=== PATIENT | female | born 1985 | race Caucasian/White ===

== ENCOUNTER 2022-02-17 14:09 | Observation (INO) | payer MEDICAID, SELFPAY ==
[2022-02-17 14:10] VITALS: BP 136/89; PULSE 77; RESP 16; TEMP 37.1; O2SAT 100; BMI 35.6
[2022-02-17 14:36] LABS: Absolute Lymphocyte Count 2.77 X10^3/uL (0.83-4.51); Absolute Neutrophil Count 3.7 X10^3/uL (2.0-7.7); Basophil# 0.03 X10^3/uL; Basophil% 0.4 % (0-1); Eosinophil# 0.16 X10^3/uL; Eosinophils% 2.1 % (0-5); Hematocrit 36.9 % (37-47); Hemoglobin 11.8 g/dL (12.0-15.0); Lymphocyte # 2.77 X10^3/ul (0.83-4.51); Lymphocyte % 36.8 % (19-41); Mean Corpuscular Hgb 28.1 pg (27.0-32.0); Mean Corpuscular Volume 87.9 fL (81-99); Mean Platelet Vol. 9.1 fl (6.2-12.0); Monocyte# 0.82 X10^3/uL; Monocyte% 10.9 % (0-10); NRBC Flagged by Analyzer 0 % (0-5); Neutrophil # 3.74 X10^3/uL (2.7-7.7); Neutrophil % 49.7 % (47-70); Platelet Count 265 K/mm3 (150-450); RBC Distribution Width CV 13.4 % (11.6-14.6); RBC Distribution Width SD 43.3 fl (35.1-43.9); White Blood Count 7.5 K/mm3 (4.4-11.0)
--- NOTE | 2022-02-17 14:46 | ED.RN ---
PT MAKES THIS RN AWARE THAT HER IS ALSO HERE FOR DETOX. THIS RN MAKES PATIENT AWARE THAT THEY WILL NOT BE ABLE TO BE IN CONTACT WITH EACH OTHER OR VISIT DURING THE DURATION OF HOSPITAL STAY. PT VERBALIZES UNDERSTANDING.
[2022-02-17 14:50] LABS: ALB/GLOB Ratio 0.8 RATIO (0.9-2.4); AST(SGOT) 42 U/L (15-37); Alanine Aminotransfer ALT/SGPT 66 U/L (13-56); Albumin, Serum 3.5 g/dL (3.2-5.0); Alkaline Phosphatase 93 U/L (45-117); Anion Gap 4 (5-15); BUN 12 mg/dL (7-18); BUN/Creat Ratio 13.2 RATIO (10-20); Calcium,Total 9.2 mg/dL (8.5-10.1); Chloride 105 mmol/L (98-107); Creatinine, Serum 0.91 mg/dL (0.55-1.02); EST Glomerular Filtration Rate 74 mL/min (>60); Est Glom Filt Rate - Afr Amer 89 mL/min (>60); Globulin 4.2 g/dL (2.2-4.2); Glucose 95 mg/dL (74-106); Potassium 3.9 mmol/L (3.5-5.1); Protein, Total 7.7 g/dL (6.4-8.2); Sodium Level 136 mmol/L (136-145)
--- NOTE | 2022-02-17 15:07 | EX.ED.SAOD ---
HPI History of Present Illness Chief Complaint: Substance Abuse Informant: patient Narrative Narrative: Patient presenting with her significant other both for opiate detox. She has been using for years, the last time she went through detox was over a year ago. She has been snorting heroin/fentanyl, and other than smoking cigarettes she does no other drugs or substances including alcohol. She last used this morning and has no withdrawal symptoms right now but when she does not use she does get withdrawal symptoms. No other illness recently and no other injury or suicidal ideation. [facility] Medical History Anxiety Depressed Drug abuse Drug abuse and dependence Restless leg syndrome Allergy/AdvReac Type Severity Reaction Status Date / Time Sulfa (Sulfonamide Allergy Hives Verified 02/17/22 14:13 Antibiotics) Social History Smoking Status: Current every day smoker tobacco type: cigarettes ROS ROS ED Constitutional Constitutional ED: Denies chills or fever(s) Eyes Eyes: Denies change in vision or diplopia ENT ENT ED: Denies rhinorrhea or sore throat Cardiovascular Cardiovascular: Denies chest pain or palpitations Respiratory/Chest Respiratory/Chest: Denies cough or dyspnea Gastrointestinal Gastrointestinal: Denies abdominal pain, diarrhea, nausea or vomiting Genitourinary Genitourinary ED: Denies dysuria or hematuria Musculoskeletal Musculoskeletal: Denies back pain or neck pain Integumentary Denies abscess or rash Neurologic Neurologic: Denies headache(s), paresthesias or weakness Psychiatric Psychiatric: Denies anxiety or suicidal thoughts EXAM Physical Exam Const Vital Signs: 02/17/22 14:10 Temperature 98.8 F Temperature Source Temporal Pulse Rate 77 Respiratory Rate 16 Blood Pressure 136/89 H Blood Pressure Mean 104 Pulse Ox 100 Oxygen Delivery Method Room Air Positive well nourished and well developed General Appearance ED: well developed and NAD HEENT Reports moist mucous membranes normocephalic and atraumatic Eyes PERRL and EOMs intact bilaterally Neck full ROM and supple Resp normal respiratory effort and clear to auscultation bilaterally Cardio regular rate, regular rhythm and no murmurs GI non-tender and non-distended Auscultation: normoactive bowel sounds Palpation: soft Back/Spine no CVA tenderness General Back: other FROM Extremity normal to inspection General Extremety ED: Negative for edema, pulses abnormal or tenderness General Extremity: Negative for edema or pulses abnormal Neuro oriented x3, CN's II-XII intact bilaterally and no sensory deficits noted Sensorium / Orientation: awake and alert Motor Exam: strength 5/5 throughout Skin no rashes or lesions noted and no wounds MDM MDM MDM Narrative Medical decision making narrative: Patient clinically and hemodynamically stable, discussed with hospitalist for admission for detox. Lab Data Attestation: I reviewed the patient's lab results. Labs: Laboratory Results - last 24 hr 02/17/22 02/17/22 02/17/22 14:28 14:28 14:38 WBC 7.5 RBC 4.20 Hgb 11.8 L Hct 36.9 L MCV 87.9 MCH 28.1 MCHC 32.0 RDW Std Deviation 43.3 RDW Coeff of Massimo 13.4 Plt Count 265 MPV 9.1 Immature Gran % (Auto) 0.100 Neut % (Auto) 49.7 Lymph % (Auto) 36.8 [place] % (Auto) 10.9 H Eos % (Auto) 2.1 Baso % (Auto) 0.4 Absolute Neuts (auto) 3.7 Absolute Lymphs (auto) 2.77 Nucleated RBC % 0 Sodium 136 Potassium 3.9 Chloride 105 Carbon Dioxide 27.0 Anion Gap 4 L BUN 12 Creatinine 0.91 Estim Creat Clear Calc 66.30 Est GFR (MDRD) Af Amer 89 Est GFR (MDRD) Non-Af 74 BUN/Creatinine Ratio 13.2 Glucose 95 Calcium 9.2 Total Bilirubin 0.30 AST 42 H ALT 66 H Alkaline Phosphatase 93 Total Protein 7.7 Albumin 3.5 Globulin 4.2 Albumin/Globulin Ratio 0.8 L Ur Drug Screen Comment Discharge Plan Triage Chief Complaint: Substance Abuse ED Provider: Mitch Tabor Dx/Rx/DC Orders Clinical Impression: Opiate dependence Primary Care Provider: Marquita Arshad Referrals: Marquita Arshad DO [Primary Care Provider] - Disposition Disposition: Acute Care Hospital [facility]
[2022-02-17 15:08] LABS: Amphetamine Urine VISTA POSITIVE (<1000 ng/mL); Barbiturate Urine VISTA NEGATIVE (< 200 ng/mL); Benzodiazepine Urine VISTA NEGATIVE (< 200 ng/mL); Cocaine Urine VISTA POSITIVE (< 300 ng/mL); Ecstacy Urine VISTA POSITIVE (< 500 ng/mL); Methadone Urine VISTA NEGATIVE (< 300 ng/mL); PCP Urine VISTA NEGATIVE (< 25 ng/mL); THC Urine VISTA POSITIVE (< 50 ng/mL); Vista UDS pH Range 5
[2022-02-17 15:10] VITALS: BP 133/84; PULSE 72; RESP 16; TEMP 37; O2SAT 98
--- NOTE | 2022-02-17 15:12 | HP.PCM.HOS_ITS ---
HPI - General General Date of Admission: 02/17/22 HPI Narrative RAFAELA BANKS, is a 36 F who presents to the hospital requesting opiate detox. She has been using for several years and last time she went through detox was over a year ago. She denies any injection opiates but she does snort heroin and fentanyl. She does smoke but she denies any alcohol use. Her last use was this morning and does not endorse any withdrawal symptoms at this time. [facility] Medical History Anxiety Depressed Drug abuse Drug abuse and dependence Restless leg syndrome Allergy/AdvReac Type Severity Reaction Status Date / Time Sulfa (Sulfonamide Allergy Hives Verified 02/17/22 14:13 Antibiotics) Social History Smoking Status: Current every day smoker tobacco type: cigarettes ROS Constitutional Constitutional: Denies chills, fatigue, fever(s) or malaise Eyes Eyes: Denies blurry vision ENT HEENT: Denies headache(s) or nasal discharge Cardiovascular Cardiovascular: Denies chest pain, dyspnea on exertion or syncope Respiratory/Chest Respiratory/Chest: Denies cough, shortness of breath at rest or shortness of breath with exertion Gastrointestinal Gastrointestinal: Denies constipation, diarrhea, nausea or vomiting Genitourinary Genitourinary: Denies dysuria Neurologic Neurologic: Denies focal weakness, numbness or tremor(s) Psychiatric Psychiatric: Denies anxiety or depression Vital Signs Vital Signs Vital Signs: 02/17/22 14:10 Temperature 98.8 F Temperature Source Temporal Pulse Rate 77 Respiratory Rate 16 Blood Pressure 136/89 H Blood Pressure Mean 104 Pulse Ox 100 Oxygen Delivery Method Room Air Weight Weight: 195 lb Body Mass Index (BMI) 35.6 Physical Exam Narrative General: Alert, Oriented x3, Cooperative, No apparent distress, little sleepy from her use this morning HEENT: Atraumatic, PERRLA, EOMI, Normocephalic Oral: Moist Mucosa Neck: Supple, No JVD Lungs: Clear to auscultation, Normal air movement, No rhonchi, No wheeze, No rales Cardiovascular: Regular rate, Regular Rhythm, Normal S1, Normal S2, No murmurs Abdomen: Soft, Non Tender, Non-Distended, No Hepato-splenomegaly Extremities: No edema, Capillary Refill Less than 3 Seconds Skin: No rashes, No breakdown Musculoskeletal: No Tenderness to Palpation of Joints or Extremities Neurological: Cranial nerves II-XII grossly intact, Motor Exam 5/5 strength throughout, Sensory exam intact to light touch and pain Psych/Mental Status: Normal Affect, Appropriate Results Lab / Micro Data Result Diagrams: 02/17/22 14:28 02/17/22 14:28 Labs: Laboratory Results - last 24 hr 02/17/22 14:28: WBC 7.5, RBC 4.20, Hgb 11.8 L, Hct 36.9 L, MCV 87.9, MCH 28.1, MCHC 32.0, RDW Std Deviation 43.3, RDW Coeff of Massimo 13.4, Plt Count 265, MPV 9.1, Immature Gran % (Auto) 0.100, Neut % (Auto) 49.7, Lymph % (Auto) 36.8, [place] % (Auto) 10.9 H, Eos % (Auto) 2.1, Baso % (Auto) 0.4, Absolute Neuts (auto) 3.7, Absolute Lymphs (auto) 2.77, Nucleated RBC % 0 02/17/22 14:28: Sodium 136, Potassium 3.9, Chloride 105, Carbon Dioxide 27.0, Anion Gap 4 L, BUN 12, Creatinine 0.91, Estim Creat Clear Calc 66.30, Est GFR (MDRD) Af Amer 89, Est GFR (MDRD) Non-Af 74, BUN/Creatinine Ratio 13.2, Glucose 95, Calcium 9.2, Total Bilirubin 0.30, AST 42 H, ALT 66 H, Alkaline Phosphatase 93, Total Protein 7.7, Albumin 3.5, Globulin 4.2, Albumin/Globulin Ratio 0.8 L 02/17/22 14:38: Urine Opiates Screen NEGATIVE, Urine Methadone Screen NEGATIVE, Ur Barbiturates Screen NEGATIVE, Ur Phencyclidine Scrn NEGATIVE, Ur Amphetamines Screen POSITIVE H, MDMA (Ecstasy) Screen POSITIVE H, U Benzodiazepines Scrn NEGATIVE, Urine Cocaine Screen POSITIVE H, U Cannabinoids Screen POSITIVE H, Ur Drug Screen Comment Assessment & Plan Assessment/Plan (1) Opiate dependence: PLAN: Plan 1. Acute opiate withdrawal/tobacco abuse ? Continue with the opiate withdrawal protocol ? Continue with 180 as an outpatient ? Discussed tobacco cessation, will provide her with a nicotine patch DVT: Ambulation Charges/Coding Visit Charges Inpatient E&M: 07943 Init Hosp L2
--- NOTE | 2022-02-17 15:21 | NURSING ---
MED SURG DELFIN OPIATE DEPENDENCE
[2022-02-17 15:24] LABS: Internal QC Validated? YES +Cl - CLEAR BKGD; Pregnancy, Serum, hCG Quali. NEGATIVE Negative
[2022-02-17 15:30] LABS: Alcohol, Blood (Medical)-Serum < 3.0 mg/dL
[2022-02-17 16:10] VITALS: RESP 16
[2022-02-17 17:02] VITALS: BMI 36.3
[2022-02-17 20:19] VITALS: BP 120/70; PULSE 62; RESP 17; TEMP 36.6; O2SAT 99
[2022-02-17] MEDS: Gabapentin 800 MG Tablet 1600 MG PO (21:01)
[2022-02-17] MEDS: buPROPion (XL) 300 MG TABLET.XL PO (21:02)
[2022-02-17] MEDS: Methocarbamol 750 MG Tablet 1500 MG PO (21:02)
[2022-02-17] MEDS: Fluoxetine HCl 40 MG CAPSULE PO (21:02)
[2022-02-18 00:30] VITALS: BP 106/59; PULSE 69; RESP 17; TEMP 36.6; O2SAT 96
[2022-02-18] MEDS: traZODone 100 MG Tablet PO ×2 (00:35→21:10)
[2022-02-18] MEDS: Buprenorphine HCl 2 MG TAB.SUBL SL ×3 (00:35→16:26)
[2022-02-18 04:06] VITALS: BP 101/54; PULSE 69; RESP 17; TEMP 36.6; O2SAT 99
[2022-02-18] MEDS: Gabapentin 800 MG Tablet 1600 MG PO ×2 (08:07→21:10)
[2022-02-18] MEDS: Methocarbamol 750 MG Tablet 1500 MG PO (08:08)
[2022-02-18 08:10] VITALS: BP 121/57; PULSE 68; RESP 18; TEMP 37; O2SAT 100
[2022-02-18] MEDS: hydrOXYzine PAM 25 MG Capsule 50 MG PO ×2 (08:14→21:10)
--- NOTE | 2022-02-18 10:23 | PCM.PN.HOSP ---
Documented by User: Zaria Martinez NP-C 02/18/22 10:26 Subjective Subjective Patient seen and examined. Patient lying in bed no distress noted. Patient states that she does have some GI upset however she has been given as needed medications which are effective at helping this. Objective Data Objective Data Vital Signs: Vital Signs Temp Pulse Resp BP Pulse Ox O2 Del Method 98.6 F 68 18 121/57 H 100 Room Air 02/18/22 08:10 02/18/22 08:10 02/18/22 08:10 02/18/22 08:10 02/18/22 08:10 02/18/22 08:10 Oxygen Delivery Method Room Air Weight: 199 lb Body Mass Index (BMI) 36.3 Intake & Output: Intake and Output for Last 24 Hours 02/16/22 02/17/22 02/18/22 23:59 23:59 23:59 Intake Total 440 / 440 120 / 120 Balance 440 / 440 120 / 120 Lab / Micro Data Result Diagrams: 02/17/22 14:28 02/17/22 14:28 Labs: Laboratory Results - last 24 hr 02/17/22 14:28: WBC 7.5, RBC 4.20, Hgb 11.8 L, Hct 36.9 L, MCV 87.9, MCH 28.1, MCHC 32.0, RDW Std Deviation 43.3, RDW Coeff of Massimo 13.4, Plt Count 265, MPV 9.1, Immature Gran % (Auto) 0.100, Neut % (Auto) 49.7, Lymph % (Auto) 36.8, [place] % (Auto) 10.9 H, Eos % (Auto) 2.1, Baso % (Auto) 0.4, Absolute Neuts (auto) 3.7, Absolute Lymphs (auto) 2.77, Nucleated RBC % 0 02/17/22 14:28: Serum , Qual NEGATIVE 02/17/22 14:28: Sodium 136, Potassium 3.9, Chloride 105, Carbon Dioxide 27.0, Anion Gap 4 L, BUN 12, Creatinine 0.91, Estim Creat Clear Calc 66.30, Est GFR (MDRD) Af Amer 89, Est GFR (MDRD) Non-Af 74, BUN/Creatinine Ratio 13.2, Glucose 95, Calcium 9.2, Total Bilirubin 0.30, AST 42 H, ALT 66 H, Alkaline Phosphatase 93, Total Protein 7.7, Albumin 3.5, Globulin 4.2, Albumin/Globulin Ratio 0.8 L 02/17/22 14:28: Ethyl Alcohol < 3.0 02/17/22 14:38: Urine Opiates Screen NEGATIVE, Urine Methadone Screen NEGATIVE, Ur Barbiturates Screen NEGATIVE, Ur Phencyclidine Scrn NEGATIVE, Ur Amphetamines Screen POSITIVE H, MDMA (Ecstasy) Screen POSITIVE H, U Benzodiazepines Scrn NEGATIVE, Urine Cocaine Screen POSITIVE H, U Cannabinoids Screen POSITIVE H, Ur Drug Screen Comment Physical Exam Const alert, oriented x3 and no apparent distress HEENT head/scalp atraumatic and moist oral mucous membranes Head and Scalp: normocephalic Eyes conjunctivae normal and no scleral icterus Neck no lymphadenopathy and supple Resp normal respiratory effort, normal air movement and clear to auscultation bilaterally Effort and Inspection: able to speak in complete sentences and symmetric chest movement Cardio regular rate, regular rhythm, S1 normal heart sound and S2 normal heart sound GI normal to inspection, nondistended, normoactive bowel sounds, soft to palpation and non-tender Extremity normal to inspection, full ROM and no clubbing, cyanosis or edema Neuro oriented x3, moves all extremities, no focal motor deficits and no sensory deficits noted Psych affect normal Assessment & Plan Assessment/Plan (1) Polysubstance abuse: (2) Opiate dependence: PLAN: Plan 1. Acute opiate withdrawal -Continue Suboxone taper and as needed medications per protocol -Consult case management for coordination with 180 for outpatient follow-up 2. Tobacco abuse -Encourage cessation -Nicotine patch ordered This patient was seen by Zaria Martinez NP-C under the supervision of Dr. Dunn 10 minutes spent in clinical coordination of patient's plan of care. Documented by User: Dr. Isacc Dunn DO 02/18/22 18:54 Objective Data Lab / Micro Data Result Diagrams: 02/17/22 14:28 07/26/22 14:28 Assessment & Plan Assessment/Plan (1) Polysubstance abuse: (2) Opiate dependence: Charges/Coding Addendum Addendum: Patient was seen and examined today independently of Farrah Martinez, she states that she is having some muscle pains but no nausea or vomiting. Patient states that she would like to do an inpatient detox program when she is released from the hospital. On examination she appeared in good health and spirits, she does not appear to be in any distress. Vital signs as documented. Skin warm and dry and without overt rashes. Neck without JVD, thyroid appears normal, trachea is midline, neck is supple. Lungs clear, normal air movement was noted. Heart exam notable for regular rhythm, normal sounds and absence of murmurs, rubs or gallops. Abdomen unremarkable and without evidence of organomegaly, masses, or abdominal aortic enlargement, bowel sounds are present in all 4 quadrants, no abdominal tenderness was noted. Extremities nonedematous, no cyanosis was noted, no clubbing was noted. Neuro: Cranial nerves II through XII are grossly intact, no focal motor deficits were noted, sensation to light touch and pinprick is intact, motor exam 5/5 throughout. Psych: Patient is alert and oriented x3, she does not appear anxious or depressed, she does not appear agitated. Impression: #1 acute opiate withdrawal-continue present medications #2 chronic opiate addiction-continue present medications #3 polysubstance abuse-complicates care, recovery, and prognosis. I have reviewed Farrah Martinez's progress note including her medical assessment and plan of care and with the above additions endorse it. Total clinical time spent by myself addressing the patient's medical issues, reviewing the data, and collaborating with patient's care team: 20 minutes Visit Charges Inpatient E&M: 68063 Subs Hosp L2
[2022-02-18 15:14] VITALS: BP 121/73; PULSE 67; RESP 16; TEMP 36.7; O2SAT 98
[2022-02-18 21:01] VITALS: BP 120/75; PULSE 70; RESP 16; TEMP 37; O2SAT 95
[2022-02-18] MEDS: Fluoxetine HCl 40 MG CAPSULE PO (21:10)
[2022-02-18] MEDS: buPROPion (XL) 300 MG TABLET.XL PO (21:10)
[2022-02-19] MEDS: Buprenorphine HCl 2 MG TAB.SUBL SL ×3 (00:36→15:59)
[2022-02-19 03:06] VITALS: BP 117/69; PULSE 62; RESP 16; TEMP 36.3; O2SAT 97
[2022-02-19] MEDS: Gabapentin 800 MG Tablet 1600 MG PO ×2 (07:59→20:36)
[2022-02-19 09:00] VITALS: BP 123/74; PULSE 65; RESP 18; TEMP 35.9; O2SAT 98
[2022-02-19 14:29] VITALS: BP 119/64; PULSE 65; RESP 18; TEMP 36.3; O2SAT 100
--- NOTE | 2022-02-19 18:18 | PN.HOSP_ITS ---
Subjective Subjective Patient was seen and examined today, she is due to be discharged tomorrow if she is medically stable to an inpatient detox program. Patient states she is doing well today. Objective Data Objective Data Vital Signs: Vital Signs Temp Pulse Resp BP Pulse Ox O2 Del Method 97.3 F L 65 18 119/64 100 Room Air 02/19/22 14:29 02/19/22 14:29 02/19/22 14:29 02/19/22 14:29 02/19/22 14:29 02/19/22 14:29 Oxygen Delivery Method Room Air Weight: 90.265 kg Body Mass Index (BMI) 36.3 Intake & Output: Intake and Output for Last 24 Hours 02/17/22 02/18/22 02/19/22 23:59 23:59 23:59 Intake Total 440 / 440 120 / 120 Balance 440 / 440 120 / 120 Lab / Micro Data Result Diagrams: 02/17/22 14:28 02/17/22 14:28 Physical Exam Narrative On examination she appeared in good health and spirits, she does not appear to be in any distress. Vital signs as documented. Skin warm and dry and without overt rashes. Neck without JVD, thyroid appears normal, trachea is midline, neck is supple. Lungs clear, normal air movement was noted. Heart exam notable for regular rhythm, normal sounds and absence of murmurs, rubs or gallops. Abdomen unremarkable and without evidence of organomegaly, masses, or abdominal aortic enlargement, bowel sounds are present in all 4 quadrants, no abdominal tenderness was noted. Extremities nonedematous, no cyanosis was noted, no clubbing was noted. Neuro: Cranial nerves II through XII are grossly intact, no focal motor deficits were noted, sensation to light touch and pinprick is intact, motor exam 5/5 throughout. Psych: Patient is alert and oriented x3, she does not appear anxious or depressed, she does not appear agitated. Const alert, oriented x3 and no apparent distress HEENT head/scalp atraumatic and moist oral mucous membranes Eyes conjunctivae normal and no scleral icterus Neck no lymphadenopathy and supple Resp normal respiratory effort, normal air movement and clear to auscultation bilaterally Effort and Inspection: able to speak in complete sentences and symmetric chest movement Cardio regular rate, regular rhythm, S1 normal heart sound and S2 normal heart sound GI normal to inspection, nondistended, normoactive bowel sounds, soft to palpation and non-tender Extremity normal to inspection, full ROM and no clubbing, cyanosis or edema Neuro oriented x3, moves all extremities, no focal motor deficits and no sensory deficits noted Psych affect normal Assessment & Plan Assessment/Plan (1) Polysubstance abuse: (2) Opiate dependence: PLAN: Plan 1. Acute opiate withdrawal- Continue present treatment including Suboxone, patient is minimally symptomatic #2 polysubstance abuse-patient did not admit to addiction psychosocial rehabilitation counselor that she was using any other substances besides fentanyl and heroin, it may be that this was laced with amphetamines or cocaine. #3 chronic opiate addiction-again patient will be discharged tomorrow if she is medically stable to an inpatient detox program. Charges/Coding Visit Charges Inpatient E&M: 65689 Subs Hosp L2
[2022-02-19 20:30] VITALS: BP 135/78; PULSE 64; RESP 16; TEMP 37.1; O2SAT 99
[2022-02-19] MEDS: Fluoxetine HCl 40 MG CAPSULE PO (20:36)
[2022-02-19] MEDS: buPROPion (XL) 300 MG TABLET.XL PO (20:37)
[2022-02-20] MEDS: Buprenorphine HCl 2 MG TAB.SUBL SL (00:50)
[2022-02-20 02:30] VITALS: BP 134/89; PULSE 62; RESP 16; TEMP 36.8; O2SAT 98
[2022-02-20 07:47] VITALS: BP 127/81; PULSE 64; RESP 18; TEMP 36.7; O2SAT 100
[2022-02-20] MEDS: Gabapentin 800 MG Tablet 1600 MG PO (07:54)
--- NOTE | 2022-02-20 08:19 | DCINST_ITS ---
Discharge Instructions Diet Discharge Diet: No restrictions Activity Discharge Activity: Return to Normal Activity Weight Bearing Status: Full weight bearing Follow Up Care Test Results: Test results from this visit will be discussed in further detail at your follow- up appointment, if applicable. Discharge Plan Admission Admit Date/Time: 02/17/22 15:10 Primary Reason for Your Visit: opiate detox Attending Provider: Isacc Dunn Primary Care Provider: Marquita Arshad Consulting Providers: Kit Lynch Discharge Orders/Prescriptions Prescriptions: Continued fluoxetine 40 mg capsule 1 cap PO QHS Label Comments: TAKE 1 TABLET EVERY DAY gabapentin 800 mg tablet 1,600 mg PO BID Label Comments: TAKE 1 TABLET BY MOUTH WITH BREAKFAST and lunch and TAKE 2 TABLETS BY MOUTH AT BEDTIME bupropion HCl 300 mg tablet extended release 24 hr 1 tab PO QHS Label Comments: TAKE 1 TABLET EVERY DAY Referrals / Follow Up: Marquita Arshad DO [Primary Care Provider] - Disposition Disposition (needs filled in before D/C Order can be placed): Inpatient Rehab Unit/Facility
--- NOTE | 2022-02-20 09:38 | PHA.DC.MR ---
Pharmacy Service has performed discharge medication reconciliation for this patient. The patient's discharge medication list was reviewed for discrepancies and discrepancies were resolved. Home Medications bupropion HCl 300 mg 24 hr tablet, extended release 1 tab PO QHS mood 02/17/22 fluoxetine 40 mg capsule 1 cap PO QHS mood 02/17/22 gabapentin 800 mg tablet 1,600 mg PO BID pain 02/17/22
[2022-02-20 09:48] VITALS: BP 129/82; PULSE 66; RESP 18; TEMP 36.7; O2SAT 99
--- NOTE | 2022-02-20 09:57 | ADDICTION ---
Pt has been approved for residential treatment. He will be placed at [facility] on 02/20/22. [facility] will provide transportation. They will arrive at 10:15. They will call once they arrive.
--- NOTE | 2022-02-22 10:15 | PCM.DC.SUM ---
Providers Date of Admission: 02/17/22 Date of Discharge: 02/20/22 Primary Care Physician: Dr. Marquita Arshad, DO Reason For Visit: OPIATE DETOX Diagnosis Discharge Diagnosis (1) Polysubstance abuse: Status: Acute Code(s): F19.10 - Other psychoactive substance abuse, uncomplicated (2) Opiate dependence: Status: Acute Code(s): F11.20 - Opioid dependence, uncomplicated Plan 1. Acute opiate withdrawal- Continue present treatment including Suboxone, patient is minimally symptomatic #2 polysubstance abuse-patient did not admit to addiction health care social worker that she was using any other substances besides fentanyl and heroin, it may be that this was laced with amphetamines or cocaine. #3 chronic opiate addiction-again patient will be discharged tomorrow if she is medically stable to an inpatient detox program. Medications at Discharge Home Medications bupropion HCl 300 mg 24 hr tablet, extended release 1 tab PO QHS mood 02/17/22 fluoxetine 40 mg capsule 1 cap PO QHS mood 02/17/22 gabapentin 800 mg tablet 1,600 mg PO BID pain 02/17/22 Hospital Course Operations None Procedures None Summary of Care Provided Minutes Spent on Discharge: 31 Hospital Course: This 36-year-old white female was seen in the emergency room at [facility] requesting services for detox from fentanyl or heroin. Work-up in the ER included positive for cocaine, amphetamines, cannabinoids, and MDMA. Patient was admitted to PCU, orders were entered using the opiate addiction order set, and she was seen in consultation by addiction health care social worker. Patient agreed to an inpatient detox program after release from the hospital. Patient had no untoward events in the hospital. On 01/31/2022, patient was seen and examined: On examination she appeared in good health and spirits, she does not appear to be in any distress. Vital signs as documented. Skin warm and dry and without overt rashes. Neck without JVD, thyroid appears normal, trachea is midline, neck is supple. Lungs clear, normal air movement was noted. Heart exam notable for regular rhythm, normal sounds and absence of murmurs, rubs or gallops. Abdomen unremarkable and without evidence of organomegaly, masses, or abdominal aortic enlargement, bowel sounds are present in all 4 quadrants, no abdominal tenderness was noted. Extremities nonedematous, no cyanosis was noted, no clubbing was noted. Neuro: Cranial nerves II through XII are grossly intact, no focal motor deficits were noted, sensation to light touch and pinprick is intact, motor exam 5/5 throughout. Psych: Patient is alert and oriented x3, she does not appear anxious or depressed, she does not appear agitated. Patient appears stable for discharge on 02/20/2022 to an inpatient detox facility. Weight / BMI Weight Weight: 90.265 kg Body Mass Index (BMI) 36.3 ABG / Lab / Microbiology Data Result Diagrams: 02/17/22 14:28 02/17/22 14:28 D/C Instructions Discharge Diet: No restrictions Weight Bearing Status: Full weight bearing Meaningful Use Info Meaningful Use Diagnoses (Choose all that apply): None applicable Discharge Plan Admission Admit Date/Time: 02/17/22 15:10 Primary Reason for Your Visit: opiate detox Attending Provider: Isacc Dunn Primary Care Provider: Marquita Arshad Consulting Providers: Kit Lynch Discharge Orders/Prescriptions Prescriptions: Continued fluoxetine 40 mg capsule 1 cap PO QHS Label Comments: TAKE 1 TABLET EVERY DAY gabapentin 800 mg tablet 1,600 mg PO BID Label Comments: TAKE 1 TABLET BY MOUTH WITH BREAKFAST and lunch and TAKE 2 TABLETS BY MOUTH AT BEDTIME bupropion HCl 300 mg tablet extended release 24 hr 1 tab PO QHS Label Comments: TAKE 1 TABLET EVERY DAY Referrals / Follow Up: Marquita Arshad DO [Primary Care Provider] - Disposition Disposition (needs filled in before D/C Order can be placed): Inpatient Rehab Unit/Facility Charges/Coding Visit Charges Inpatient E&M: 00252 Disch Hosp
== END 2022-02-20 10:35 ==
LOC: ED 15:11 → PCU 02-18 06:41
PROVIDERS: Admitting Provider Family Medicine; Emergency Provider Emergency Medicine; PCP Internal Medicine; Visit Provider Internal Medicine
DX: F11.23 Opioid dependence with withdrawal (principal); F19.10 Other psychoactive substance abuse, uncomplicated; F17.210 Nicotine dependence, cigarettes, uncomplicated
CPT/HCPCS: 36415; 80053; 80307; 82077; 84703; 85025; 99283; 99406; H0012

== ENCOUNTER 2024-04-03 17:16 | Observation (INO) | payer MEDICAID, SELFPAY ==
[2024-04-03 17:17] VITALS: BP 135/76; PULSE 52; RESP 16; TEMP 36.2; O2SAT 99; BMI 34.3
--- NOTE | 2024-04-03 18:39 | EDS_ITS ---
HPI History of Present Illness Chief Complaint: Substance Abuse Informant: patient Narrative Narrative: Here to help detox off opioids. She snorts fentanyl and heroin. Last use 11 AM. Symptoms rhinorrhea and sweatiness. No abdominal cramping. She is been using this for years. Denies any other recreational drugs. She states she detoxed here 2 years ago and upon silicates shots which helped her a lot more. She reports of trouble getting to her doctor recently, Dr. Garay, they switched her to strips and she states for the past 2 to 3 months on this she did not like it therefore stopped using the strips. She relapsed back to snorting fentanyl and heroin. Denies alcohol use. Tobacco history. She has history of tubal ligation. Denies IV injections. Prior similar symptoms: Yes PFSH PFSH Medical History Drug abuse Drug abuse and dependence Restless leg syndrome Anxiety Depressed Home Medications ?Medication ?Instructions ?Recorded ?Last Taken ?Type bupropion HCl 300 mg 24 hr tablet, 1 tab PO QHS mood 02/17/22 Unknown History extended release gabapentin 800 mg tablet 1,600 mg PO BID pain 02/17/22 Unknown History buprenorphine 8 mg-naloxone 2 mg 1 ea sublingual BID withdraw 04/03/24 Unknown History sublingual film fluoxetine 20 mg capsule 20 mg PO DAILY depression 04/03/24 Unknown History ibuprofen 800 mg tablet 800 mg PO TID PRN PRN fever or pain 04/03/24 Unknown History Allergy/AdvReac Type Severity Reaction Status Date / Time Sulfa (Sulfonamide Allergy Hives Verified 04/03/24 17:20 Antibiotics) Social History Smoking Status: Current every day smoker tobacco type: cigarettes ROS ROS ED Constitutional Constitutional ED: Reports chills; Denies fever(s) or sweats Eyes Eyes: Denies change in vision ENT ENT ED: Reports rhinorrhea; Denies dysphagia or sore throat Cardiovascular Cardiovascular: Denies chest pain, leg edema, palpitations or racing heartbeat Respiratory/Chest Respiratory/Chest: Denies cough, dyspnea or dyspnea on exertion Gastrointestinal Gastrointestinal: Denies abdominal pain, diarrhea, nausea or vomiting Genitourinary Genitourinary ED: Denies dysuria, hematuria or urinary frequency Musculoskeletal Musculoskeletal: Denies back pain, extremity pain or neck pain Integumentary Denies rash or wounds Neurologic Neurologic: Denies headache(s), paresthesias or weakness EXAM Physical Exam Const Vital Signs: 04/03/24 17:17 04/03/24 19:16 Temperature 97.2 F L Temperature Source Temporal Pulse Rate 52 L 62 Respiratory Rate 16 16 Blood Pressure 135/76 H 109/67 Blood Pressure Mean 95 81 Pulse Ox 99 99 Oxygen Delivery Method Room Air Room Air Positive well nourished and well developed General Appearance ED: well developed and NAD HEENT Reports moist mucous membranes normocephalic and atraumatic Eyes EOMs intact bilaterally and conjunctivae normal General Eye ED: Yes normal appearance of both eyes Neck no lymphadenopathy and supple General: Negative for tenderness Chest Wall Chest: Negative for tenderness Resp normal respiratory effort and normal air movement Effort and Inspection: symmetric chest movement; Negative for respiratory distress Cardio regular rate, regular rhythm and no murmurs Peripheral Pulses: pulses 2+ throughout GI normal to inspection, nondistended, normoactive bowel sounds and non-tender Palpation: Negative for guarding or rebound tenderness present Back/Spine no CVA tenderness and no thoracic nor lumbar tenderness Extremity normal to inspection General Extremety ED: Negative for edema or tenderness General Extremity: Negative for edema Neuro oriented x3 and no sensory deficits noted Sensorium / Orientation: awake and alert Psych Psych Narrative: Normal affect. Skin no rashes or lesions noted and no wounds MDM MDM MDM Narrative Medical decision making narrative: Interventions / MDM: Differential diagnosis: Opioid dependence, opioid withdrawal Diagnosis considered but do not suspect: N/A My EKG interpretation: N/A Imaging independently reviewed and interpreted by myself: N/A External documents reviewed: N/A Test considered but not ordered:N/A ED course: Patient vital stable. Slight rhinorrhea and chills that she has had previously. No abdominal cramping or vomiting. She is here for detox off opioids. Medical clearance labs were ordered. Will plan for admission. Labs are stable. Alcohol negative. Toxicology positive for opiates, ecstasy, cocaine, THC. I spoke with hospitalist Dr. Love for admission. Re-evaluation: stable Disposition discussed with patient/family/significant other: Patient Case discussed with consulting clinician: Hospitalist This note was generated with Transcriptication software. It may contain incorrect words, spelling, and punctuation that were not noted in checking the note before signing. Lab Data Labs: Laboratory Results - last 24 hr 04/03/24 04/03/24 04/03/24 18:49 19:05 19:28 WBC 6.9 RBC 4.19 L Hgb 11.8 L Hct 36.6 L MCV 87.4 MCH 28.2 MCHC 32.2 RDW Std Deviation 43.9 RDW Coeff of Massimo 13.8 Plt Count 307 MPV 9.4 Immature Gran % (Auto) 0.300 Neut % (Auto) 64.0 Lymph % (Auto) 27.9 [place] % (Auto) 5.8 Eos % (Auto) 1.6 Baso % (Auto) 0.4 Absolute Neuts (auto) 4.4 Absolute Lymphs (auto) 1.92 Nucleated RBC % 0 Sodium 138 Potassium 4.0 Chloride 106 Carbon Dioxide 24.0 Anion Gap 8 BUN 14 Creatinine 0.90 Estim Creat Clear Calc 84.08 Est GFR (MDRD) Af Amer 88 Est GFR (MDRD) Non-Af 73 BUN/Creatinine Ratio 15.5 Glucose 146 H Calcium 9.4 Total Bilirubin 0.30 AST 18 ALT 23 Alkaline Phosphatase 68 Total Protein 7.0 Albumin 3.3 Globulin 3.7 Albumin/Globulin Ratio 0.9 Urine Test Negative Urine Opiates Screen POSITIVE H Urine Methadone Screen NEGATIVE Ur Barbiturates Screen NEGATIVE Ur Phencyclidine Scrn NEGATIVE Ur Amphetamines Screen NEGATIVE MDMA (Ecstasy) Screen POSITIVE H U Benzodiazepines Scrn NEGATIVE Urine Cocaine Screen POSITIVE H U Cannabinoids Screen POSITIVE H Ur Drug Screen Comment Ethyl Alcohol < 3.0 Discharge Plan Dx/Rx/DC Orders Clinical Impression: Polysubstance abuse, Opiate dependence Disposition Disposition: Acute Care Hospital [facility] Discharge Date/Time: 04/03/24 21:07
[2024-04-03 18:55] LABS: Absolute Lymphocyte Count 1.92 X10^3/uL (0.83-4.51); Absolute Neutrophil Count 4.4 X10^3/uL (2.0-7.7); Basophil# 0.03 X10^3/uL; Basophil% 0.4 % (0-1); Eosinophil# 0.11 X10^3/uL; Eosinophils% 1.6 % (0-5); Hematocrit 36.6 % (37-47); Hemoglobin 11.8 g/dL (12.0-15.0); Lymphocyte # 1.92 X10^3/ul (0.83-4.51); Lymphocyte % 27.9 % (19-41); Mean Corp Hgb Conc 32.2 g/dL (32-36); Mean Corpuscular Hgb 28.2 pg (27.0-32.0); Mean Corpuscular Volume 87.4 fL (81-99); Mean Platelet Vol. 9.4 fl (6.2-12.0); Monocyte% 5.8 % (0-10); NRBC Flagged by Analyzer 0 % (0-5); Neutrophil # 4.39 X10^3/uL (2.7-7.7); Platelet Count 307 K/mm3 (150-450); RBC Distribution Width CV 13.8 % (11.6-14.6); RBC Distribution Width SD 43.9 fl (35.1-43.9); Red Blood Count 4.19 M/mm3 (4.2-5.4); White Blood Count 6.9 K/mm3 (4.4-11.0)
[2024-04-03 19:16] VITALS: BP 109/67; PULSE 62; RESP 16; O2SAT 99
[2024-04-03 19:17] LABS: Alcohol, Blood (Medical)-Serum < 3.0 mg/dL
[2024-04-03 19:21] LABS: ALB/GLOB Ratio 0.9 RATIO (0.9-2.4); AST(SGOT) 18 U/L (15-37); Alanine Aminotransfer ALT/SGPT 23 U/L (13-56); Albumin, Serum 3.3 g/dL (3.2-5.0); Alkaline Phosphatase 68 U/L (45-117); Anion Gap 8 (5-15); BUN 14 mg/dL (7-18); BUN/Creat Ratio 15.5 RATIO (10-20); Calcium,Total 9.4 mg/dL (8.5-10.1); Chloride 106 mmol/L (98-107); EST Glomerular Filtration Rate 73 mL/min (>60); Est Glom Filt Rate - Afr Amer 88 mL/min (>60); Estimated Creatinine Clearance 84.08 ml/min; Globulin 3.7 g/dL (2.2-4.2); Glucose 146 mg/dL (74-106); Sodium Level 138 mmol/L (136-145)
--- NOTE | 2024-04-03 19:51 | HP.PCM.HOS_ITS ---
[facility] - General General Date of Admission: 04/03/24 Date of Service: 04/03/24 Chief Complaint: Opiate Abuse wants help with Detox. HPI Narrative RAFAELA BANKS, is a 38 F with a past medical history of obesity; with BMI of 34 this admission, RLS, depression with anxiety, history of polysubstance abuse; with previous detox here in [address] [facility] ER complaining of having relapsed into opiate abuse with patient admitting to snorting Fentanyl and Heroin for years with her last use ~11:00 AM with subsequent runny nose and sweatiness. She denies other illicit drug use or EtOH use. She further added that she had trouble getting to her physician recently, Dr. Garay, and she was subsequently switched to strips for the past ~2-3 months - which she has decided she does not like - and when she did not take this agent as prescribed she relapsed shortly thereafter. She admits her symptoms are similar to her previous bouts of withdrawal. There is no report of fever, chills, nausea, vomiting, diarrhea, constipation, abdominal pain, chest pain or SOB. In the ER she was diagnosed with acute opiate withdrawal in the setting of chronic opiate abuse triggered by medical noncompliance with her UDS positive for: Opiates, MDMA, Cocaine plus Cannabis and she was then admitted to the general medical floor for ongoing care for a stay that is expected to extend beyond 2 midnights. [facility] Medical History (Updated 04/04/24 @ 02:[address] Rinku Cronin, DO) Drug abuse Drug abuse and dependence Restless leg syndrome Anxiety Depressed Home Medications ?Medication ?Instructions ?Recorded ?Last Taken ?Type bupropion HCl 300 mg 24 hr tablet, 1 tab PO QHS mood 02/17/22 Unknown History extended release gabapentin 800 mg tablet 1,600 mg PO BID pain 02/17/22 Unknown History buprenorphine 8 mg-naloxone 2 mg 1 ea sublingual BID withdraw 04/03/24 Unknown History sublingual film fluoxetine 20 mg capsule 20 mg PO DAILY depression 04/03/24 Unknown History ibuprofen 800 mg tablet 800 mg PO TID PRN PRN fever or pain 04/03/24 Unknown History Allergy/AdvReac Type Severity Reaction Status Date / Time Sulfa (Sulfonamide Allergy Hives Verified 04/03/24 17:20 Antibiotics) Social History Smoking Status: Current every day smoker tobacco type: cigarettes ROS ROS Narrative Review of Systems: Constitutional: Patient admits to chills but she denies fever or sweats. Eyes: Patient denies changes in vision or discharge from eyes. ENT: Patient admits to runny nose but she denies sore throat or ear pain. Resp: Patient denies SOB or cough. CV: Patient denies chest pain, LE edema, palpitations or heart racing. GI: Patient denies abdominal pain, nausea, vomiting, diarrhea and constipation. : Patient denies dysuria or hematuria. MSK: Patient denies myalgias or arthralgias. Skin: Patient denies rash, abscess or jaundice. Psych: Patient admits to anxiety but he denies suicidal or homicidal ideation. Neuro: Patient denies headache, paresthesias or focal neurologic deficits. Allergy: Patient denies lip swelling, tongue swelling or urticaria. Hematology: Patient denies easy bleeding or easy bruisability. Endocrinology: Patient denies polyuria, polydipsia and polyphagia. 14 point ROS otherwise negative except for positives noted above. Vital Signs Vital Signs Vital Signs: 04/03/24 17:17 04/03/24 19:16 Temperature 97.2 F L Temperature Source Temporal Pulse Rate 52 L 62 Respiratory Rate 16 16 Blood Pressure 135/76 H 109/67 Blood Pressure Mean 95 81 Pulse Ox 99 99 Oxygen Delivery Method Room Air Room Air Weight Weight: 187 lb 9.6 oz Body Mass Index (BMI) 34.3 Physical Exam Const alert, oriented x3 and no apparent distress Constitutional Narrative: Obese with patient appearing older than her stated age. General Appearance: cooperative HEENT normocephalic, head/scalp atraumatic, hearing grossly normal bilaterally and moist oral mucous membranes Eyes PERRL and EOMs intact bilaterally Neck no lymphadenopathy and supple Resp normal respiratory effort, no retractions, no use of accessory muscles and clear to auscultation bilaterally Cardio regular rate and regular rhythm GI normal to inspection, nondistended, normoactive bowel sounds, soft to palpation, non-tender and non-distended GI Narrative: Obese. Extremity normal to inspection and full ROM Skin Skin Narrative: Patient has no evidence of rash, abscess or jaundice. Neuro oriented x3, CN's II-XII intact bilaterally, moves all extremities and no focal motor deficits Sensorium / Orientation: awake, alert, oriented to person, oriented to place and oriented to time Speech: speech normal Psych affect normal Results Medical Records Data Attestation: I reviewed the patient's medical records Lab / Micro Data Attestation: I reviewed the patient's lab results. 04/03/24 18:49 04/03/24 18:49 Labs: Laboratory Results - last 24 hr 04/03/24 18:49: WBC 6.9, RBC 4.19 L, Hgb 11.8 L, Hct 36.6 L, MCV 87.4, MCH 28.2, MCHC 32.2, RDW Std Deviation 43.9, RDW Coeff of Massimo 13.8, Plt Count 307, MPV 9.4, Immature Gran % (Auto) 0.300, Neut % (Auto) 64.0, Lymph % (Auto) 27.9, [place] % (Auto) 5.8, Eos % (Auto) 1.6, Baso % (Auto) 0.4, Absolute Neuts (auto) 4.4, Absolute Lymphs (auto) 1.92, Nucleated RBC % 0, Sodium 138, Potassium 4.0, Chloride 106, Carbon Dioxide 24.0, Anion Gap 8, BUN 14, Creatinine 0.90, Estim Creat Clear Calc 84.08, Est GFR (MDRD) Af Amer 88, Est GFR (MDRD) Non-Af 73, BUN/Creatinine Ratio 15.5, Glucose 146 H, Calcium 9.4, Total Bilirubin 0.30, AST 18, ALT 23, Alkaline Phosphatase 68, Total Protein 7.0, Albumin 3.3, Globulin 3.7, Albumin/Globulin Ratio 0.9, Ethyl Alcohol < 3.0 04/03/24 19:05: Ur Drug Screen Comment Assessment & Plan Assessment/Plan (1) Opiate withdrawal: (2) Polysubstance abuse: (3) Medical non-compliance: (4) Tobacco abuse: (5) Obesity (BMI 30.0-34.9): (6) Depression with anxiety: (7) Restless leg syndrome: PLAN: Plan 1. Acute opiate withdrawal in the setting of chronic opiate abuse with her UDS positive for: Opiates, MDMA, Cocaine plus Cannabis - Admit to general medical floor for treatment under the opiate withdrawal protocol primarily consisting of Buprenorphine taper. Polysubstance Cessation will be strongly encouraged. Continue ibuprofen prn pain or fever. 2. Medical Noncompliance with buprenorphine-naloxone agent triggering #1 - Noted. Patient encouraged to take her medications as prescribed. 3. Tobacco Abuse complicating #1 & #2 - Tobacco Cessation will be strongly encouraged with Nicotine patch offered to control cravings. 4. Obesity; with BMI of 34 this admission - Weight loss will be recommended. Check TSH. 5. Depression with anxiety - Continue home regimen as previous. 6. RLS - Stable. 7. DVT prophylaxis - Lovenox 40 mg sq daily. Total time: Approximately 55 minutes. Charges/Coding Visit Charges Inpatient E&M: 06777 Init Hosp L2
[2024-04-03 20:06] LABS: Internal QC Validated? YES +Cl - CLEAR BKGD; Pregnancy, Urine Negative Negative
[2024-04-03 21:00] VITALS: BP 112/69; PULSE 65; RESP 16; TEMP 36.9; O2SAT 97
[2024-04-03 21:20] VITALS: BP 103/54; PULSE 58; RESP 17; TEMP 36.6; O2SAT 100
[2024-04-03 21:23] VITALS: BMI 34.0
[2024-04-03 21:33] LABS: Amphetamine Urine VISTA NEGATIVE (<1000 ng/mL); Barbiturate Urine VISTA NEGATIVE (< 200 ng/mL); Benzodiazepine Urine VISTA NEGATIVE (< 200 ng/mL); Cocaine Urine VISTA POSITIVE (< 300 ng/mL); Ecstacy Urine VISTA POSITIVE (< 500 ng/mL); Methadone Urine VISTA NEGATIVE (< 300 ng/mL); PCP Urine VISTA NEGATIVE (< 25 ng/mL); THC Urine VISTA POSITIVE (< 50 ng/mL); Vista UDS pH Range 5
[2024-04-03] MEDS: hydrOXYzine PAM 25 MG Capsule 50 MG PO (21:35)
[2024-04-03] MEDS: buPROPion (XL) 300 MG TABLET.XL PO (21:36)
[2024-04-03] MEDS: Methocarbamol 750 MG Tablet PO (21:36)
[2024-04-03] MEDS: Ibuprofen 400 MG Tablet 800 MG PO (21:36)
[2024-04-03] MEDS: Buprenorphine HCl 2 MG TAB.SUBL SL (22:06)
[2024-04-04 02:14] VITALS: BP 114/77; PULSE 77; RESP 17; TEMP 36.8; O2SAT 100
[2024-04-04] MEDS: hydrOXYzine PAM 25 MG Capsule 50 MG PO ×2 (04:25→16:20)
[2024-04-04] MEDS: Buprenorphine HCl 2 MG TAB.SUBL SL ×3 (05:44→22:15)
[2024-04-04] MEDS: Methocarbamol 750 MG Tablet PO ×3 (05:48→22:14)
[2024-04-04 05:51] VITALS: BP 106/64; PULSE 54; RESP 17; TEMP 36.3; O2SAT 97
[2024-04-04 09:50] VITALS: BP 116/72; PULSE 72; RESP 18; TEMP 36.8; O2SAT 98
[2024-04-04] MEDS: Enoxaparin 40 MG/0.4 ML Syringe SC (09:55)
[2024-04-04] MEDS: Ondansetron 8 MG Tablet PO (09:55)
[2024-04-04] MEDS: FLUoxetine 20 MG Capsule PO (09:55)
--- NOTE | 2024-04-04 11:57 | ADDICTION ---
Met w/pt. Completed all RAMP assessments. Pt reports that she plans on following up with Dr. Rizzo and going back on the Suboxone strips after discharge. She did not report a need for transportation post d/c.
[2024-04-04] MEDS: Ibuprofen 400 MG Tablet 800 MG PO ×2 (13:41→22:14)
[2024-04-04] MEDS: Gabapentin 800 MG Tablet PO ×2 (13:45→22:15)
[2024-04-04 14:30] VITALS: BP 122/80; PULSE 70; RESP 16; TEMP 36.6; O2SAT 100
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
[2024-04-04 22:02] VITALS: BP 117/68; PULSE 63; RESP 16; TEMP 36.8; O2SAT 99
[2024-04-04] MEDS: cloNIDine HCl 0.1 MG Tablet PO (22:14)
[2024-04-04] MEDS: buPROPion (XL) 300 MG TABLET.XL PO (22:15)
[2024-04-04] MEDS: Temazepam 15 MG Capsule PO (23:06)
[2024-04-04] MEDS: MELATONIN 3 MG TABLET 6 MG PO (23:06)
[2024-04-05 06:07] VITALS: BP 126/84; PULSE 74; RESP 18; TEMP 36.6; O2SAT 96
[2024-04-05] MEDS: Gabapentin 800 MG Tablet PO (06:15)
[2024-04-05] MEDS: Buprenorphine HCl 2 MG TAB.SUBL SL ×2 (06:16→12:06)
[2024-04-05] MEDS: Ibuprofen 400 MG Tablet 800 MG PO (06:22)
[2024-04-05] MEDS: Methocarbamol 750 MG Tablet PO (06:22)
[2024-04-05] MEDS: FLUoxetine 20 MG Capsule PO (09:12)
[2024-04-05 09:39] VITALS: BP 122/74; PULSE 77; RESP 16; TEMP 36.4; O2SAT 100
--- NOTE | 2024-04-05 12:07 | PCM.DC ---
Discharge Instructions Diet Discharge Diet: No restrictions Activity Discharge Activity: Return to Normal Activity Weight Bearing Status: Full weight bearing Follow Up Care Test Results: Test results from this visit will be discussed in further detail at your follow-up appointment, if applicable. Discharge Plan Admission Admit Date/Time: 04/03/24 20:40 Primary Reason for Your Visit: Opiate detox Attending Provider: Isacc Dunn Primary Care Provider: Gracie Rizzo NP Consulting Providers: Rinku Cronin Instructions Additional Instructions / Restrictions: Follow-up with your primary care physician regarding prescriptions for detox medications Discharge Orders/Prescriptions Prescriptions: Continued gabapentin 800 mg tablet 800 mg PO TID Patient Comments: TAKE 1 TABLET BY MOUTH WITH BREAKFAST and lunch and TAKE 2 TABLETS BY MOUTH AT BEDTIME bupropion HCl 300 mg tablet extended release 24 hr 1 tab PO QHS Patient Comments: TAKE 1 TABLET EVERY DAY ibuprofen 800 mg tablet 800 mg PO TID PRN PRN (Reason: fever or pain) fluoxetine 20 mg capsule 20 mg PO DAILY buprenorphine-naloxone 8-2 mg film 1 ea sublingual BID Referrals / Follow Up: Marquita Arshad DO [Non-Staff] - Gracie Rizzo NP, [employer] [Primary Care Provider] - Disposition Disposition (needs filled in before D/C Order can be placed): Home, Self Care
[2024-04-05 12:13] VITALS: BP 129/71; PULSE 71; RESP 16; TEMP 36.7; O2SAT 98
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
== END 2024-04-05 12:56 | disposition home or self-care (01) ==
LOC: ED 19:42 → MS3 20:22
PROVIDERS: Admitting Provider Internal Medicine; Emergency Provider Emergency Medicine; Visit Provider Internal Medicine
DX: F11.23 Opioid dependence with withdrawal (principal); E66.9 Obesity, unspecified; G25.81 Restless legs syndrome; F17.210 Nicotine dependence, cigarettes, uncomplicated; F41.8 Other specified anxiety disorders; Z68.34 Body mass index [BMI] 34.0-34.9, adult; Z91.199 Patient's noncompliance with other medical treatment and regimen due to unspecified reason; Z79.899 Other long term (current) drug therapy; G89.29 Other chronic pain
CPT/HCPCS: 80053; 80307; 81025; 82077; 84443; 85025; 99283; 99406; H0012